=== PATIENT | female | born 1990 | race Two or more races ===

== ENCOUNTER 2023-09-17 13:47 | Outpatient (CLI) | payer OTHER | END 2023-09-17 13:49 | disposition home or self-care (01) | LOC: PRENATAL 13:47 | PROVIDERS: ATTEND Obstetrics & Gynecology Maternal & Fetal Medicine | DX: O36.80X0 Pregnancy with inconclusive fetal viability, not applicable or unspecified (principal); Z36.82 Encounter for antenatal screening for nuchal translucency; Z36.9 Encounter for antenatal screening, unspecified; Z3A.13 13 weeks gestation of pregnancy ==

== ENCOUNTER 2024-02-03 09:55 | Outpatient (CLI) | payer OTHER | END 2024-02-03 09:56 | disposition home or self-care (01) | LOC: PRENATAL 09:55 | PROVIDERS: ATTEND Obstetrics & Gynecology Maternal & Fetal Medicine | DX: O26.843 Uterine size-date discrepancy, third trimester (principal); O36.8130 Decreased fetal movements, third trimester, not applicable or unspecified; O24.419 Gestational diabetes mellitus in pregnancy, unspecified control; Z3A.32 32 weeks gestation of pregnancy ==

== ENCOUNTER 2024-03-01 08:28 | Outpatient (CLI) | payer OTHER | END 2024-03-01 08:29 | disposition home or self-care (01) | LOC: PRENATAL 08:28 | PROVIDERS: ATTEND Obstetrics & Gynecology Maternal & Fetal Medicine | DX: O26.843 Uterine size-date discrepancy, third trimester (principal); O24.419 Gestational diabetes mellitus in pregnancy, unspecified control; O32.9XX1 Maternal care for malpresentation of fetus, unspecified, fetus 1; O36.8130 Decreased fetal movements, third trimester, not applicable or unspecified; Z3A.36 36 weeks gestation of pregnancy ==

== ENCOUNTER 2024-03-05 08:45 | Inpatient (IN) | payer OTHER ==
[~2024-03-05] VITALS: Ht 172.7 cm; Wt 2.7 kg
[2024-03-05 09:27] LABS: URINE APPEARANCE Clear; URINE BILIRRUBIN Negative (NEGATIVE); URINE BLOOD Negative; URINE COLOR Yellow; URINE GLUCOSE Negative (NEGATIVE); URINE KETONE Negative (NEGATIVE); URINE LEUKOCYTE Small; URINE NITRATE Negative; URINE PROTEIN Negative (NEGATIVE)
[2024-03-05 09:28] LABS: URINE BACTERIA 6840.1 uL (0.0-1933); URINE CAST 2.59 uL (0.0-1.40); URINE EPITHELIAL CELLS 34.4 uL (0.0-38.8); URINE RBC 7.1 uL (0.0-20.8); URINE WBC 107.4 uL (0.0-23.2)
[2024-03-05 09:37] LABS: HEMATOCRIT 38.4 % (36.0-45.00); HEMOGLOBIN 13.1 g/dL (12.0-15.00); MEAN CELL VOLUME 86.6 fL (80.00-100.00); MEAN CORPUSCULAR HEMOGLOBIN 29.7 pg (27.00-32.0); MEAN CORPUSCULAR HGB CONC 34.3 g/dl (32.0-36.0); PLATELET COUNT 212 K/uL (150-450); RED BLOOD COUNT 4.43 M/uL (4.00-6.00); RED CELL DISTRIBUTION WIDTH 13.3 % (11.5-14.5)
[2024-03-05 09:56] LABS: INR < 0.93; PARTIAL THROMBOPLASTIN TIME 29.5 SECONDS (22.0-34.0)
[2024-03-05 10:07] LABS: ALBUMIN 2.8 gm/dL (3.4-5.0); BILIRUBIN TOTAL 0.9 mg/dL (0.3-1.2); CALCIUM 9.2 mg/dL (8.5-10.1); CREATININE SERUM 0.51 mg/dL (0.55-1.02); GFR 139.75; GLOBULINA 3.6 G/DL (2.4-3.5); POTASSIUM 3.96 mEq/L (3.5-5.1); TOTAL PROTEIN 6.4 gm/dL (6.4-8.2)
[2024-03-10] MEDS ORDERED: ERYTHROMYCIN BASE 1 GM TUBE OP ONE ×3 (12:55→18:04)
[2024-03-10] MEDS ORDERED: CHLORHEXIDINE GLUCONATE 120 ML BOTTLE TOP ONE (12:56)
[2024-03-10] MEDS ORDERED: OXYTOCIN 10 UNITS/ML VIAL ONE ×3 (12:56→18:04)
[2024-03-10] MEDS ORDERED: CEFAZOLIN SODIUM 1,000 MG VIAL ONE (13:50)
[2024-03-10] MEDS ORDERED: CEFAZOLIN SODIUM 1,000 MG VIAL IV NR (14:00)
[2024-03-10] MEDS ORDERED: RINGERS SOLUTION,LACTATED 1,000 ML IV SCH (14:00)
[2024-03-10] MEDS ORDERED: PRENATAL TABLE1 EAC1 PO (14:24)
[2024-03-10] MEDS ORDERED: KETOROLAC TROMETHAMINE 30 MG VIAL IV PRN (20:15)
[2024-03-10] MEDS ORDERED: PROMETHAZINE HCL 25 MG/ML AMPUL IV PRN (20:15)
[2024-03-10] MEDS ORDERED: OXYTOCIN 1,000 ML IV SCH (20:15)
[2024-03-10] MEDS ORDERED: MEPERIDINE HCL/PF 50 MG/ML VIAL IV PRN (20:15)
[2024-03-11] MEDS ORDERED: KETOROLAC TROMETHAMINE 30 MG VIAL ONE (02:30)
[2024-03-11] MEDS ORDERED: OXYTOCIN 10 UNITS/ML VIAL ONE ×2 (02:32→04:05)
[2024-03-11 05:48] LABS: HEMATOCRIT 32.7 % (36.0-45.00); HEMOGLOBIN 11.1 g/dL (12.0-15.00); MEAN CELL VOLUME 86.9 fL (80.00-100.00); MEAN CORPUSCULAR HEMOGLOBIN 29.4 pg (27.00-32.0); PLATELET COUNT 188 K/uL (150-450); RED BLOOD COUNT 3.77 M/uL (4.00-6.00); RED CELL DISTRIBUTION WIDTH 13.3 % (11.5-14.5)
[2024-03-11] MEDS ORDERED: OxyCODONE HCL/APAP UD (PERCOCET) PO PRN (09:00)
[2024-03-11] MEDS ORDERED: SIMETHICONE 125 MG CAPSULE PO SCH (09:00)
[2024-03-11] MEDS ORDERED: DOCUSATE SODIUM 100MG CAP PO SCH (09:00)
[2024-03-11] MEDS ORDERED: IBUprofen 800 MG TABLET PO PRN (09:00)
== END 2024-03-13 17:19 | disposition home or self-care (01) | DRG 788 ==
LOC: OB/GYN 03-10 08:45 → LDR 03-10 12:11 → O/R 03-10 18:29 → OB/GYN 03-10 23:27
PROVIDERS: ADMIT Student in an Organized Health Care Education/Training Program; ATTEND Student in an Organized Health Care Education/Training Program
PROC: 0DN80ZZ Release Small Intestine, Open Approach (ICD-10-PCS; 2024-03-10)
PROC: 4A1HXCZ Monitoring of Products of Conception, Cardiac Rate, External Approach (ICD-10-PCS; 2024-03-10)
PROC: 10D00Z1 Extraction of Products of Conception, Low, Open Approach (ICD-10-PCS; principal; 2024-03-10 12:00)
DX: O34.29 Maternal care due to uterine scar from other previous surgery (principal); O99.214 Obesity complicating childbirth; O32.8XX0 Maternal care for other malpresentation of fetus, not applicable or unspecified; O99.892 Other specified diseases and conditions complicating childbirth; N85.8 Other specified noninflammatory disorders of uterus; E66.9 Obesity, unspecified; N73.6 Female pelvic peritoneal adhesions (postinfective); O24.420 Gestational diabetes mellitus in childbirth, diet controlled; Z3A.38 38 weeks gestation of pregnancy; Z37.0 Single live birth; Z20.822 Contact with and (suspected) exposure to COVID-19